=== PATIENT | male | born 1985 | race African-American/Black ===

== ENCOUNTER 2017-05-31 22:52 | Emergency (ER) | payer OTHER ==
[2017-06-01] MEDS: KETOROLAC 60 MG INJ IM (03:08)
== END 2017-06-01 03:51 | disposition home or self-care (01) ==
LOC: FTE 22:52
DX: S76.212A Strain of adductor muscle, fascia and tendon of left thigh, initial encounter (principal); S39.012A Strain of muscle, fascia and tendon of lower back, initial encounter; S16.1XXA Strain of muscle, fascia and tendon at neck level, initial encounter; V89.2XXA Person injured in unspecified motor-vehicle accident, traffic, initial encounter
CPT/HCPCS: 96372; 99284-25